=== PATIENT | female | born 1990 | race Caucasian/White ===

== ENCOUNTER 2016-08-31 21:45 | Emergency (ER) | payer MEDICAID ==
[2016-08-31 21:56] VITALS: BP 113/65
--- NOTE | 2016-08-31 22:33 | EDM.PDOC ---
ED HPI GENERAL MEDICAL PROBLEM - General Chief Complaint: Skin Complaint Stated Complaint: POSS SPIDER BITE Time Seen by Provider: 08/31/16 22:14 Source of Information: Reports: Patient History Limitations: Reports: No Limitations - History of Present Illness INITIAL COMMENTS - FREE TEXT/NARRATIVE: This is a 25-year-old female. Apparently she got hit in the left lower leg proximally medial side by either a bug or a spider about 4 or 5 days ago. The area has a reddened region about 1.5 cm in diameter. She states it itches a lot and she was afraid it might be infected. He denies any fever or chills she denies any nausea or vomiting no nasal congestion no cough. She states she is approximately 5 months . 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: Hematologic History: Reports: Anemia - Past Surgical History Female Surgical History: Reports: D&C Social & Family History - Family History Family Medical History: Noncontributory - Tobacco Use Smoking Status *Q: Never Smoker Second Hand Smoke Exposure: No - Caffeine Use Caffeine Use: Reports: None - Recreational Drug Use Recreational Drug Use: No Drug Use in Last 12 Months: Yes Recreational Drug Type: Reports: Marijuana/Hashish ED ROS GENERAL - Review of Systems Review Of Systems: See Below Constitutional: Denies: Fever, Chills HEENT: Reports: No Symptoms Respiratory: Reports: No Symptoms Cardiovascular: Reports: No Symptoms Endocrine: Reports: No Symptoms GI/Abdominal: Reports: No Symptoms : Reports: No Symptoms Musculoskeletal: Reports: No Symptoms Skin: Reports: Other (As per history of present illness) Neurological: Reports: No Symptoms Psychiatric: Reports: No Symptoms Hematologic/Lymphatic: Reports: No Symptoms ED EXAM, SKIN/RASH Exam: See Below Exam Limited By: No Limitations General Appearance: Alert, WD/WN, No Apparent Distress Eye Exam: Bilateral Eye: Normal Inspection Ears: Normal External Exam Nose: Normal Inspection Throat/Mouth: Normal Inspection, Normal Lips, Normal Voice Head: Normocephalic Neck: Supple Respiratory/Chest: No Respiratory Distress GI/Abdominal: Soft Back Exam: Full Range of Motion Extremities: Other (In her left lower extremity in the lower leg proximal portion medially there does appear to be an insect bite, there is some erythema about 1.5 cm diameter around the insect bite, there is no ulceration there is no induration, there is no warmth differential and no suggestion of a cellulitis it is just a reaction to the insect bite, there is no other skin complaints) Neurological: Alert, Oriented Psychiatric: Normal Affect, Normal Mood Skin: Warm, Dry Course - Vital Signs Last Recorded V/S: Last Vital Signs Temp 98.5 F 08/31/16 21:52 Pulse 85 08/31/16 21:52 Resp 20 08/31/16 21:52 BP 113/65 08/31/16 21:52 Pulse Ox 99 08/31/16 21:52 - Re-Assessments/Exams Free Text/Narrative Re-Assessment/Exam: 08/31/16 22:31 I spoke to the patient about not taking Benadryl pills since she is or using the hydrocortisone cream. It would be okay however to use the Caladryl type cream on the area or to use benzocaine cream. Departure - Departure Time of Disposition: 22:33 Disposition: Home, Self-Care 01 Condition: Good Clinical Impression: Pruritus Insect bite Qualifiers: Encounter type: initial encounter Qualified Code(s): W57.XXXA - Bitten or stung by nonvenomous insect and other nonvenomous arthropods, initial encounter - Discharge Information Referrals: Autumn Alaniz MD [Primary Care Provider] - Forms: ED Department Discharge Additional Instructions: For the insect bite to may use some Caladryl cream or lotion and/or some benzocaine cream to help with the itching, a few scratch the area a lot it will tend to make the reaction bigger and last longer should try not to scratch it, follow-up with the ER as needed
== END 2016-08-31 22:44 | disposition home or self-care (01) ==
LOC: JD.ED 21:45
DX: O9A.212 Injury, poisoning and certain other consequences of external causes complicating pregnancy, second trimester (principal); S80.862A Insect bite (nonvenomous), left lower leg, initial encounter; L29.9 Pruritus, unspecified; Z87.440 Personal history of urinary (tract) infections; Z86.2 Personal history of diseases of the blood and blood-forming organs and certain disorders involving the immune mechanism; W57.XXXA Bitten or stung by nonvenomous insect and other nonvenomous arthropods, initial encounter
CPT/HCPCS: 99282

== ENCOUNTER 2016-12-26 23:38 | Inpatient (IN) | payer MEDICAID ==
[2016-12-26] MEDS ORDERED: Nalbuphine 20 MG/1 ML Amp ONE (23:49)
[2016-12-27] MEDS ORDERED: Oxytocin/Lactated Ringers 10 UNIT/1,000 ML BAG IV SCH
[2016-12-27] MEDS ORDERED: Sodium Chloride 0.9% 10 ML Syringe FLUSH PRN
[2016-12-27] MEDS ORDERED: Ondansetron 4 MG/2 ML SDV IVPUSH PRN
[2016-12-27] MEDS ORDERED: Nalbuphine 20 MG/1 ML Amp IVPUSH PRN
[2016-12-27] MEDS ORDERED: Lidocaine 1% 50 ML MDV ONE (00:28)
[2016-12-27] MEDS ORDERED: diphenhydrAMINE 50 MG/ML SDV IVPUSH PRN (00:29)
[2016-12-27] MEDS ORDERED: fentaNYL 100 MCG/2 ML SDV EPIDUR PRN (00:29)
[2016-12-27] MEDS ORDERED: ePHEDrine 50 MG/ML SDV IVPUSH PRN (00:29)
[2016-12-27] MEDS ORDERED: Bupivacaine/fentaNYL/NS 100 ML Bag EPIDUR SCH (00:30)
[2016-12-27] MEDS: Lactated Ringers 1,000 ML IV SCH ×2 (00:32→00:33)
--- NOTE | 2016-12-27 00:47 | PCM.LDHP ---
L&D History of Present Illness - General Date of Service: 12/27/16 Admit Problem/Dx: Patient Status Order with Admit Dx/Problem 12/27/16 00:01 Patient Status [ADT] Routine Admission Diagnosis/Problem Admission Diagnosis/Problem Source of Information: Patient History Limitations: Reports: No Limitations - History of Present Illness Introduction:: 26 year old at 40w0d here in labor. PNC with myself complicated by closely spaced pregnancies. Doing well. Very uncomfortable with contractions. 5 cm. Has been 5 in clinic but without contractions. 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: Hematologic History: Reports: Anemia - Past Surgical History Female Surgical History: Reports: D&C Social & Family History - Family History Family Medical History: Noncontributory - Tobacco Use Smoking Status *Q: Never Smoker Second Hand Smoke Exposure: No - Caffeine Use Caffeine Use: Reports: None - Recreational Drug Use Recreational Drug Use: No Drug Use in Last 12 Months: Yes Recreational Drug Type: Reports: Marijuana/Hashish H&P Review of Systems - Review of Systems: Review Of Systems: See Below General: Reports: No Symptoms HEENT: Reports: No Symptoms Pulmonary: Reports: No Symptoms Cardiovascular: Reports: No Symptoms Gastrointestinal: Reports: No Symptoms Genitourinary: Reports: No Symptoms Musculoskeletal: Reports: No Symptoms Skin: Reports: No Symptoms Psychiatric: Reports: No Symptoms Neurological: Reports: No Symptoms Hematologic/Lymphatic: Reports: No Symptoms Immunologic: Reports: No Symptoms L&D Exam - Exam Exam: See Below - OB Specific Contraction Intensity: Moderate to Strong Movement: Active Heart Tones: Present Heart Rate (FHR) Variability: Moderate (6-25 bmp) Presentation: Vertex - Weaver Score Weaver Score Cervix Position: Midposition Weaver Score Consistency: Soft Weavre Score Effacement: >80% Weaver Score Dilation: > 5 cm Weaver Score Infant's Station: -2 Weaver Score Total: 10 - Exam General: Alert, Oriented HEENT: PERRLA, Conjunctiva Clear, EACs Clear, EOMI, Hearing Intact, Mucosa Moist & [place], Nares Patent, Normal Nasal Septum, Posterior Pharynx Clear, TMs Clear Neck: Supple, Trachea Midline Lungs: Clear to Auscultation, Normal Respiratory Effort Cardiovascular: Regular Rate, Regular Rhythm GI/Abdominal Exam: Normal Bowel Sounds, Soft, Non-Tender, No Organomegaly, No Distention, No Abnormal Bruit, No Mass, Pelvis Stable Genitourinary: Normal external exam, Normal bimanual exam, Normal speculum exam Back Exam: Normal Inspection, Full Range of Motion Extremities: Normal Inspection, Normal Range of Motion, Non-Tender, No Pedal Edema, Normal Capillary Refill Skin: Warm, Dry, Intact Neurological: Cranial Nerves Intact, Reflexes Equal Bilateral Psychiatric: Alert, Normal Affect, Normal Mood - Patient Data Lab Results Last 24 hrs: Laboratory Results - last 24 hr 12/26/16 Range/Units 23:53 WBC 10.17 H (3.98-10.04) K/mm3 RBC 4.57 (3.98-5.22) M/mm3 Hgb 8.3 L (11.2-15.7) gm/L Hct 29.3 L (34.1-44.9) % MCV 64.1 L (79.4-94.8) fl MCH 18.2 L (25.6-32.2) pg MCHC 28.3 L (32.2-35.5) g/dl RDW Std Deviation 43.3 (36.4-46.3) fL Plt Count 220 (182-369) K/mm3 MPV 10.3 (9.4-12.3) fl Neut % (Auto) 63.5 (34.0-71.1) % Lymph % (Auto) 27.3 (19.3-51.7) % [place] % (Auto) 8.7 (4.7-12.5) % Eos % (Auto) 0.3 L (0.7-5.8) Baso % (Auto) 0.1 (0.1-1.2) % Neut # (Auto) 6.46 H (1.56-6.13) K/mm3 Lymph # (Auto) 2.78 (1.18-3.74) K/mm3 [place] # (Auto) 0.88 H (0.24-0.36) K/mm3 Eos # (Auto) 0.03 L (0.04-0.36) K/mm3 Baso # (Auto) 0.01 (0.01-0.08) K/mm3 Manual Slide Review Abnormal smear Result Diagrams: 12/26/16 23:53 Problem List Initiated/Reviewed/Updated: Yes Orders Last 24hrs: Active Orders 24 hr Category Date Time Status Patient Status [ADT] Routine ADT 12/27/16 00:01 Active Activity as Tolerated [RC] PFP Care 12/27/16 00:00 Active Communication Order [RC] ASDIRECTED Care 12/27/16 00:00 Active Communication Order [RC] ASDIRECTED Care 12/27/16 00:29 Active Cooling Warming Measures [RC] ASDIRECTED Care 12/27/16 00:29 Active Heart Tones [RC] ASDIRECTED Care 12/27/16 00:01 Active Notify Provider [RC] ASDIRECTED Care 12/27/16 00:29 Active Notify Provider [RC] PFP Care 12/27/16 00:00 Active Notify Provider [RC] PRN Care 12/27/16 00:00 Active Oxygen Therapy [RC] ASDIRECTED Care 12/27/16 00:29 Active Peripheral IV Care [RC] . DIRECTED Care 12/27/16 00:01 Active Pulse Oximetry [RC] ASDIRECTED Care 12/27/16 00:29 Active Urinary Catheter Assessment [RC] ASDIRECTED Care 12/27/16 00:00 Active Verify Patient Consent Obtain [RC] ASDIRECTED Care 12/27/16 00:29 Active Vital Signs [RC] PER UNIT ROUTINE Care 12/27/16 00:00 Active Vital Signs [RC] Q1H Care 12/27/16 00:29 Active Bupivacaine/fentaNYL/NS [fentaNYL/Bupivacaine/NS 2 MCG- Med 12/27/16 00:30 Active 0.125% 100 ML] 100 ml EPIDUR ASDIRECTED Lactated Ringers [Ringers, Lactated] 1,000 ml Med 12/27/16 00:00 Active IV ASDIRECTED Nalbuphine [Nubain] Med 12/27/16 00:00 Active 10 mg IVPUSH Q2H PRN Ondansetron [Zofran] Med 12/27/16 00:00 Active 4 mg IVPUSH Q4H PRN Oxytocin/Lactated Ringers [Pitocin in LR 10 Units/1,000 Med 12/27/16 00:00 Active ML] 10 unit in 1,000 ml IV .CONTINUOUS Sodium Chloride 0.9% [Saline Flush] Med 12/27/16 00:00 Active 10 ml FLUSH ASDIRECTED PRN diphenhydrAMINE [Benadryl] Med 12/27/16 00:29 Active 25 mg IVPUSH Q6H PRN ePHEDrine [ePHEDrine Sulfate] Med 12/27/16 00:29 Active 5 mg IVPUSH ASDIRECTED PRN fentaNYL [Sublimaze] Med 12/27/16 00:29 Active 100 mcg EPIDUR Q3H PRN Electronic Heart Tones Ext w TOCO [WOMSER] Oth 12/27/16 00:00 Ordered Routine Electronic Heart Tones Internal [WOMSER] Per Unit Oth 12/27/16 00:00 Ordered Routine Peripheral IV Insertion Adult [OM.PC] Routine Oth 12/27/16 00:00 Ordered Resuscitation Status Routine Resus Stat 12/27/16 00:00 Ordered Medication Orders Diphenhydramine HCl (Benadryl) 25 mg IVPUSH Q6H PRN PRN Reason: Itching Ephedrine Sulfate (Ephedrine Sulfate) 5 mg IVPUSH ASDIRECTED PRN PRN Reason: HYPOTENSION Fentanyl (Sublimaze) 100 mcg EPIDUR Q3H PRN PRN Reason: PAIN Fentanyl/Bupivacaine HCl (Fentanyl/Bupivacaine/Ns 2 Mcg-0.125% 100 Ml) 100 ml EPIDUR ASDIRECTED MELISSA Lactated Ringer's (Ringers, Lactated) 1,000 mls @ 100 mls/hr IV ASDIRECTED MELISSA Last Admin: 12/27/16 00:33 Dose: 999 mls/hr Infusion: 12/27/16 00:33 Dose: 999 mls/hr Admin: 12/27/16 00:32 Dose: 999 mls/hr Oxytocin/Lactated Ringer's (Pitocin In Lr 10 Units/1,000 Ml) 10 unit in 1,000 mls @ 500 mls/hr IV .CONTINUOUS MELISSA Last Admin: 12/27/16 00:34 Dose: 500 mls/hr Nalbuphine HCl (Nubain) 10 mg IVPUSH Q2H PRN PRN Reason: Pain (moderate 4-6) Ondansetron HCl (Zofran) 4 mg IVPUSH Q4H PRN PRN Reason: Nausea/Vomiting Sodium Chloride (Saline Flush) 10 ml FLUSH ASDIRECTED PRN PRN Reason: Keep Vein Open Assessment/Plan Comment:: 40w IUP. Desires epidural. Reassuring monitoring. Anticipate . IV fluids now.
--- NOTE | 2016-12-27 00:50 | PCM.PREANE ---
Preanesthetic Assessment - Anesthesia/Transfusion/Family Hx Anesthesia History: Prior Anesthesia Without Reaction Family History of Anesthesia Reaction: No Transfusion History: No Prior Transfusion(s) - Review of Systems General: No Symptoms Pulmonary: No Symptoms Cardiovascular: No Symptoms Gastrointestinal: No Symptoms Neurological: No Symptoms Other: Reports: None - Physical Assessment ASA Class: 2 Mental Status: Alert & Oriented x3 Airway Class: Mallampati = 1 Dentition: Reports: Normal Dentition Thyro-Mental Finger Breadths: 3 Mouth Opening Finger Breadths: 3 ROM/Head Extension: Full Lungs: Clear to Auscultation, Normal Respiratory Effort Cardiovascular: Regular Rate, Regular Rhythm, No Murmurs - Lab Values: Laboratory Last Values WBC 10.17 K/mm3 (3.98-10.04) H 12/26/16 23:53 RBC 4.57 M/mm3 (3.98-5.22) 12/26/16 23:53 Hgb 8.3 gm/L (11.2-15.7) L 12/26/16 23:53 Hct 29.3 % (34.1-44.9) L 12/26/16 23:53 MCV 64.1 fl (79.4-94.8) L 12/26/16 23:53 MCH 18.2 pg (25.6-32.2) L 12/26/16 23:53 MCHC 28.3 g/dl (32.2-35.5) L 12/26/16 23:53 RDW Std Deviation 43.3 fL (36.4-46.3) 12/26/16 23:53 Plt Count 220 K/mm3 (182-369) 12/26/16 23:53 MPV 10.3 fl (9.4-12.3) 12/26/16 23:53 Neut % (Auto) 63.5 % (34.0-71.1) 12/26/16 23:53 Lymph % (Auto) 27.3 % (19.3-51.7) 12/26/16 23:53 [place] % (Auto) 8.7 % (4.7-12.5) 12/26/16 23:53 Eos % (Auto) 0.3 (0.7-5.8) L 12/26/16 23:53 Baso % (Auto) 0.1 % (0.1-1.2) 12/26/16 23:53 Neut # (Auto) 6.46 K/mm3 (1.56-6.13) H 12/26/16 23:53 Lymph # (Auto) 2.78 K/mm3 (1.18-3.74) 12/26/16 23:53 [place] # (Auto) 0.88 K/mm3 (0.24-0.36) H 12/26/16 23:53 Eos # (Auto) 0.03 K/mm3 (0.04-0.36) L 12/26/16 23:53 Baso # (Auto) 0.01 K/mm3 (0.01-0.08) 12/26/16 23:53 Manual Slide Review Abnormal smear 12/26/16 23:53 - Allergies Allergies/Adverse Reactions: Allergies Allergy/AdvReac Type Severity Reaction Status Date / Time No Known Allergies Allergy Verified 08/31/16 21:56 - Anesthesia Plan Pre-Op Medication Ordered: None - Acknowledgements Anesthesia Type Planned: Spinal Pt an Appropriate Candidate for the Planned Anesthesia: Yes Alternatives and Risks of Anesthesia Discussed w Pt/Guardian: Yes Pt/Guardian Understands and Agrees with Anesthesia Plan: Yes PreAnesthesia Questionnaire - Past Health History Medical/Surgical History: Denies Medical/Surgical History Gastrointestinal History: Reports: GERD Genitourinary History: Reports: UTI, Recurrent Other Genitourinary History: Hx of multiple kidney infections, kidney cysts 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: Hematologic History: Reports: Anemia - Past Surgical History Female Surgical History: Reports: D&C - SUBSTANCE USE Smoking Status *Q: Never Smoker Second Hand Smoke Exposure: No Recreational Drug Use History: No Recreational Drug Type: Reports: Marijuana/Hashish Other Recreational Drug Type: medical for pain back pain and kidney stones - HOME MEDS Home Medications: Home Meds Nitrofurantoin Monohyd/M-Cryst [Macrobid 100 mg Capsule] 100 mg PO Q12H #20 capsule 12/22/16 [Rx] - CURRENT (IN HOUSE) MEDS Current Meds: Current Medications Diphenhydramine HCl (Benadryl) 25 mg IVPUSH Q6H PRN PRN Reason: Itching Ephedrine Sulfate (Ephedrine Sulfate) 5 mg IVPUSH ASDIRECTED PRN PRN Reason: HYPOTENSION Fentanyl (Sublimaze) 100 mcg EPIDUR Q3H PRN PRN Reason: PAIN Fentanyl/Bupivacaine HCl (Fentanyl/Bupivacaine/Ns 2 Mcg-0.125% 100 Ml) 100 ml EPIDUR ASDIRECTED MELISSA Lactated Ringer's (Ringers, Lactated) 1,000 mls @ 100 mls/hr IV ASDIRECTED MELISSA Last Admin: 12/27/16 00:33 Dose: 999 mls/hr Oxytocin/Lactated Ringer's (Pitocin In Lr 10 Units/1,000 Ml) 10 unit in 1,000 mls @ 500 mls/hr IV .CONTINUOUS MELISSA Last Admin: 12/27/16 00:34 Dose: 500 mls/hr Nalbuphine HCl (Nubain) 10 mg IVPUSH Q2H PRN PRN Reason: Pain (moderate 4-6) Ondansetron HCl (Zofran) 4 mg IVPUSH Q4H PRN PRN Reason: Nausea/Vomiting Sodium Chloride (Saline Flush) 10 ml FLUSH ASDIRECTED PRN PRN Reason: Keep Vein Open Discontinued Medications Lidocaine HCl (Xylocaine 1%) Confirm Administered Dose 50 ml .ROUTE .STK-MED ONE Stop: 12/27/16 00:29 Nalbuphine HCl (Nubain) Confirm Administered Dose 20 mg .ROUTE .STK-MED ONE Stop: 12/26/16 23:50
[2016-12-27] MEDS ORDERED: Witch Hazel Medicated Pads 100/Jar TOP PRN (02:49)
[2016-12-27] MEDS ORDERED: Docusate Sodium 100 MG Cap PO PRN (02:49)
[2016-12-27] MEDS ORDERED: Benzocaine/Menthol 20%-0.5% Spray 56 GM Canister TOP PRN (02:49)
[2016-12-27] MEDS ORDERED: Lanolin 100% Cream 7 GM Tube TOP PRN (02:49)
[2016-12-27] MEDS ORDERED: Simethicone 80 MG Tab.Chew PO PRN (02:49)
[2016-12-27] MEDS: Ibuprofen 600 MG Tab PO PRN ×3 (03:00→22:38)
--- NOTE | 2016-12-27 09:53 | PCM48HPAN ---
Post Anesthesia Note - EVALUATION WITHIN 48HRS OF ANESTHETIC Vital Signs in Normal Range: Yes Patient Participated in Evaluation: Yes Respiratory Function Stable: Yes Airway Patent: Yes Cardiovascular Function Stable: Yes Hydration Status Stable: Yes Pain Control Satisfactory: Yes Nausea and Vomiting Control Satisfactory: Yes Mental Status Recovered: Yes
[2016-12-27] MEDS ORDERED: Bupivacaine 0.25% 10 ML SDV ONE (22:22)
--- NOTE | 2016-12-28 07:57 | PCM.DCSUM1 ---
Discharge Summary - Hospital Course Brief History: Admitted in labor. Rapid . Anemia on admission that worsened slightly. Asymptomatic - Discharge Data Discharge Date: 12/28/16 Discharge Disposition: Home, Self-Care 01 Condition: Good - Patient Instructions Diet: Usual Diet as Tolerated Activity: No Strenuous Activities Activity, Other: pelvic rest Driving: May Drive Today Showering/Bathing: May Shower Notify Provider of: Fever, Increased Pain, Swelling and Redness, Drainage, Nausea and/or Vomiting - Discharge Plan Prescriptions/Med Rec: Ferrous Sulfate [Slow Fe] 142 mg PO BID #60 tablet.er Home Medications: Home Meds Vit W-Ca,Fe,FA(<1 mg) [ Vitamins] 1 each PO DAILY 12/27/16 [ History] Ferrous Sulfate [Slow Fe] 142 mg PO BID #60 tablet.er 12/28/16 [Rx] Patient Handouts: Vaginal Delivery, Care After, Home Care Instructions for Mom , Pelvic Rest Referrals: Autumn Alaniz MD [Primary Care Provider] - (4 weeks) - Discharge Summary/Plan Comment DC Time >30 min.: No - General Info Date of Service: 12/28/16 Functional Status: Reports: Pain Controlled - Review of Systems General: Reports: No Symptoms. Denies: Weakness, Fatigue HEENT: Reports: No Symptoms Pulmonary: Reports: No Symptoms Cardiovascular: Reports: No Symptoms Gastrointestinal: Reports: No Symptoms Genitourinary: Reports: No Symptoms Musculoskeletal: Reports: No Symptoms Skin: Reports: No Symptoms Neurological: Reports: No Symptoms Psychiatric: Reports: No Symptoms - Patient Data Vitals - Most Recent: Last Vital Signs Temp 36.6 C 12/28/16 03:32 Pulse 61 12/28/16 03:32 Resp 16 12/28/16 03:32 BP 101/55 L 12/28/16 03:32 Pulse Ox 100 12/28/16 03:32 Weight - Most Recent: 63.503 kg I&O - Last 24 hours: Intake & Output 12/27/16 12/28/16 12/28/16 22:59 06:59 14:59 Intake Total 120 500 Balance 120 500 Lab Results - Last 24 hrs: Laboratory Results - last 24 hr 12/27/16 12/27/16 Range/Units 22:43 22:43 WBC 10.26 H (3.98-10.04) K/mm3 RBC 3.98 (3.98-5.22) M/mm3 Hgb 7.3 L* (11.2-15.7) gm/L Hct 26.2 L (34.1-44.9) % MCV 65.8 L (79.4-94.8) fl MCH 18.3 L (25.6-32.2) pg MCHC 27.9 L (32.2-35.5) g/dl RDW Std Deviation 44.1 (36.4-46.3) fL Plt Count 207 (182-369) K/mm3 MPV 11.4 (9.4-12.3) fl Blood Type B POSITIVE Gel Antibody Screen Negative Med Orders - Current: Current Medications Benzocaine/Menthol (Dermoplast Pain Relief [place]) 0 gm TOP ASDIRECTED PRN PRN Reason: Perineal Comfort Measure Last Admin: 12/27/16 03:52 Dose: 1 spray Docusate Sodium (Colace) 100 mg PO BID PRN PRN Reason: Constipation Emollient Ointment (Lansinoh Hpa) 0 gm TOP ASDIRECTED PRN PRN Reason: Sore Nipples Ibuprofen (Motrin) 600 mg PO Q6H PRN PRN Reason: Mild pain or fever Last Admin: 12/27/16 22:38 Dose: 600 mg Simethicone (Simethicone) 80 mg PO Q4H PRN PRN Reason: Gas Witch Kayleen (Tucks) 1 pad TOP ASDIRECTED PRN PRN Reason: Hemorrhoid pain Last Admin: 12/27/16 03:52 Dose: 1 pad Discontinued Medications Diphenhydramine HCl (Benadryl) 25 mg IVPUSH Q6H PRN PRN Reason: Itching Ephedrine Sulfate (Ephedrine Sulfate) 5 mg IVPUSH ASDIRECTED PRN PRN Reason: HYPOTENSION Fentanyl (Sublimaze) 100 mcg EPIDUR Q3H PRN PRN Reason: PAIN Fentanyl/Bupivacaine HCl (Fentanyl/Bupivacaine/Ns 2 Mcg-0.125% 100 Ml) 100 ml EPIDUR ASDIRECTED MELISSA Lactated Ringer's (Ringers, Lactated) 1,000 mls @ 100 mls/hr IV ASDIRECTED MELISSA Last Admin: 12/27/16 00:33 Dose: 999 mls/hr Oxytocin/Lactated Ringer's (Pitocin In Lr 10 Units/1,000 Ml) 10 unit in 1,000 mls @ 500 mls/hr IV .CONTINUOUS MELISSA Last Admin: 12/27/16 00:34 Dose: 500 mls/hr Lidocaine HCl (Xylocaine 1%) Confirm Administered Dose 50 ml .ROUTE .STK-MED ONE Stop: 12/27/16 00:29 Last Admin: 12/27/16 04:19 Dose: Not Given Nalbuphine HCl (Nubain) Confirm Administered Dose 20 mg .ROUTE .STK-MED ONE Stop: 12/26/16 23:50 Last Admin: 12/27/16 04:20 Dose: Not Given Nalbuphine HCl (Nubain) 10 mg IVPUSH Q2H PRN PRN Reason: Pain (moderate 4-6) Last Admin: 12/27/16 00:00 Dose: 10 mg Ondansetron HCl (Zofran) 4 mg IVPUSH Q4H PRN PRN Reason: Nausea/Vomiting Sodium Chloride (Saline Flush) 10 ml FLUSH ASDIRECTED PRN PRN Reason: Keep Vein Open - Exam General: Reports: Alert, Oriented HEENT: Reports: Pupils Equal, Pupils Reactive, EOMI, Mucous Membr. Moist/[place] Neck: Reports: Supple Lungs: Reports: Clear to Auscultation, Normal Respiratory Effort Cardiovascular: Reports: Regular Rate, Regular Rhythm. Denies: Tachycardia GI/Abdominal Exam: Normal Bowel Sounds, Soft, Non-Tender, No Organomegaly, No Distention, No Abnormal Bruit, No Mass, Pelvis Stable Back Exam: Reports: Normal Inspection, Full Range of Motion Extremities: Normal Inspection, Normal Range of Motion, Non-Tender, No Pedal Edema, Normal Capillary Refill Skin: Reports: Warm, Dry, Intact Wound/Incisions: Reports: Healing Well Neurological: Reports: No New Focal Deficit Psy/Mental Status: Reports: Alert, Normal Affect, Normal Mood *Q Meaningful Use (DIS) - VTE *Q VTE Criteria *Q: - Stroke *Q Stroke Criteria *Q: - AMI *Q AMI Criteria *Q:
[2016-12-28 11:45] VITALS: BP 111/65
[2016-12-28] MEDS: Ibuprofen 600 MG Tab PO PRN (11:56)
== END 2016-12-28 13:45 | disposition home or self-care (01) | DRG 775 ==
LOC: JD.OBCHECK 23:38 → JD.OB 23:42 → JD.OBCHECK 12-27 00:13 → JD.OB 12-27 00:15 → JD.MS 12-27 01:16 → OBSVTOIN 12-27 01:16 → JD.MS 12-27 03:05
PROVIDERS: ADMIT Obstetrics & Gynecology; ATTEND Obstetrics & Gynecology
PROC: 10E0XZZ Delivery of Products of Conception, External Approach (ICD-10-PCS; principal; 2016-12-27)
PROC: 10907ZC Drainage of Amniotic Fluid, Therapeutic from Products of Conception, Via Natural or Artificial Opening (ICD-10-PCS; 2016-12-27)
PROC: 00HU33Z Insertion of Infusion Device into Spinal Canal, Percutaneous Approach (ICD-10-PCS; 2016-12-27)
PROC: 3E0R3BZ Introduction of Anesthetic Agent into Spinal Canal, Percutaneous Approach (ICD-10-PCS; 2016-12-27)
DX: O99.02 Anemia complicating childbirth (principal); Z3A.40 40 weeks gestation of pregnancy; Z37.0 Single live birth
CPT/HCPCS: 01967; 36415; 59409; 85025; 85027; 86850; 86900; 86901; A9270-GY; J2300; J2590; J7120

== ENCOUNTER 2017-12-04 12:06 | Emergency (ER) | payer MEDICAID ==
[2017-12-04] MEDS ORDERED: Ondansetron 4 MG Tab.DIS PO ONE (12:40)
[2017-12-04] MEDS ORDERED: Acetaminophen 325 MG Tab PO STA (12:40)
--- NOTE | 2017-12-04 13:41 | EDM.PDOC ---
ED HPI GENERAL MEDICAL PROBLEM - General Chief Complaint: Head Injury Stated Complaint: HEAD INJURY Time Seen by Provider: 12/04/17 12:28 Source of Information: Reports: Patient History Limitations: Reports: No Limitations - History of Present Illness INITIAL COMMENTS - FREE TEXT/NARRATIVE: 27-year-old female presents for evaluation and treatment of head trauma. Patient reports off and she was drinking alcohol. States that she drank excessively. She does not recall what happened. She believes she was at a gas station. She is reporting a headache primarily to the posterior parietal and superior occipital area. She reports nausea and vomiting. She states that she remembers being at gas station where she believes she fell. She then reports waking up at home. She is not taking anything for her headache, nausea or vomiting. She reports and neck pain to the left side of her neck as well. Denies any chest pain, abdominal pain, back pain, pain in the extremities or hips. She was walking on her own volition. No bruising. She has not appreciated any lumps to her scalp. 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 Denies: Abdominal Pain Musculoskeletal: Reports: Neck Pain Neurological: Reports: Headache ED EXAM, HEAD INJURY - Physical Exam Exam: See Below Exam Limited By: No Limitations General Appearance: Alert, WD/WN, No Apparent Distress Head: Atraumatic, Normocephalic Nexus Criteria: No: Posterior, Midline Cervical Tenderness, Evidence of Intoxication, Altered Level of Consciousness, Focal Neurological Deficit, Painful Distraction Injuries Eyes: Bilateral Eye: EOMI, Normal Inspection Ears: Normal External Exam, Normal Canal, Hearing Grossly Normal, Normal TMs. No: TM Blood Nose: Normal Inspection, No Blood Throat/Mouth: Normal Inspection, Normal Lips, Normal Teeth, Normal Gums, Normal Oropharynx, Normal Voice, No Airway Compromise. No: Dental Trauma Neck: Non-Tender, Full Range of Motion, Normal Alignment, Normal Inspection, Tender Lateral (left lateral neck pain) Respiratory: No Respiratory Distress, Lungs Clear, Normal Breath Sounds, Chest Non-Tender Cardiovascular: Normal Peripheral Pulses, Regular Rate, Rhythm, No Murmur GI/Abdominal Exam: Normal Bowel Sounds, Soft, Non-Tender Neurologic: Alert, Normal Mood/Affect Skin: Normal Color, Warm/Dry - Eddie Coma Score Best Eye Response (Eddie): (4) Open Spontaneously Best Verbal Response (Eddie): (5) Oriented Best Motor Response (Eddie): (6) Obeys Commands Course - Vital Signs Last Recorded V/S: Last Vital Signs Temp 98.1 F 12/04/17 12:23 Pulse 78 12/04/17 14:34 Resp 16 12/04/17 14:34 BP 107/65 12/04/17 14:34 Pulse Ox 97 12/04/17 14:34 - Orders/Labs/Meds Meds: Medications Discontinued Medications Generic Name Dose Route Start Last Admin Trade Name Anamaria PRN Reason Stop Dose Admin Acetaminophen 650 mg 12/04/17 12:40 12/04/17 13:05 Tylenol PO 12/04/17 12:41 650 mg NOW STA Administration Ketorolac Tromethamine 60 mg 12/04/17 14:21 12/04/17 14:34 Toradol IM 12/04/17 14:22 60 mg ONETIME ONE Administration Ondansetron HCl 4 mg 12/04/17 12:40 12/04/17 13:06 Zofran Odt PO 12/04/17 12:41 4 mg ONETIME ONE Administration - Radiology Interpretation Free Text/Narrative:: Head CT Technique: Multiple axial sections through the brain were obtained. Intravenous contrast was not utilized. Comparison: No previous intracranial imaging. Findings: Ventricles along with basal cisterns and sulci over the convexities are within normal limits for the patient's age. No abnormal parenchymal densities are seen. No evidence of intracranial hemorrhage. No midline shift or mass effect is seen. Bone window settings were reviewed which show no acute calvarial abnormality. Mild mucosal thickening is noted within the ethmoid sinus and sphenoid sinus. Impression: 1. Probable mild chronic sinusitis. 2. No acute intracranial abnormality is seen. CT cervical spine Technique: Multiple axial sections were obtained from above C1 inferiorly to the top of T3. Reconstructed sagittal and coronal images were reviewed. Findings: Vertebral bodies and disc spaces are maintained. Vertebral bodies and posterior arches are intact with no fracture being seen. No bony central or bony neural foraminal stenosis is seen. Kyphosis is noted on the reconstructed sagittal views which likely is positional. No abnormal subluxation is seen. Impression: 1. Nothing acute is seen on CT study of the cervical spine. - Re-Assessments/Exams Free Text/Narrative Re-Assessment/Exam: 12/04/17 14:21 I reviewed the imaging with the patient. She is asking for something more for her headache. I will give her some IM Toradol now that her head CT is clear. We' ll plan to discharge home. Discharge instructions as documented. Departure - Departure Time of Disposition: 14:21 Disposition: Home, Self-Care 01 Condition: Fair Clinical Impression: Headache, Nausea & vomiting, Alcohol abuse - Discharge Information *PRESCRIPTION DRUG MONITORING PROGRAM REVIEWED*: No *COPY OF PRESCRIPTION DRUG MONITORING REPORT IN PATIENT LAURENT: No Instructions: Alcohol Use Disorder, General Headache Without Cause Referrals: PCP,None [Primary Care Provider] - Forms: ED Department Discharge Additional Instructions: go home and rest. Make sure you are drinking plenty of fluids. zofran 1 tab sublingual every 6-8 hours as needed for nausea. Recommend bland foods and clear liquids today. [id number] Tylenol or Motrin as needed for headaches. Please return to the ER if your symptoms change or worsen.
--- NOTE | 2017-12-04 14:05 | CT ---
Head CT Technique: Multiple axial sections through the brain were obtained. Intravenous contrast was not utilized. Comparison: No previous intracranial imaging. Findings: Ventricles along with basal cisterns and sulci over the convexities are within normal limits for the patient's age. No abnormal parenchymal densities are seen. No evidence of intracranial hemorrhage. No midline shift or mass effect is seen. Bone window settings were reviewed which show no acute calvarial abnormality. Mild mucosal thickening is noted within the ethmoid sinus and sphenoid sinus. Impression: 1. Probable mild chronic sinusitis. 2. No acute intracranial abnormality is seen. Diagnostic code #2
--- NOTE | 2017-12-04 14:09 | CT ---
CT cervical spine Technique: Multiple axial sections were obtained from above C1 inferiorly to the top of T3. Reconstructed sagittal and coronal images were reviewed. Findings: Vertebral bodies and disc spaces are maintained. Vertebral bodies and posterior arches are intact with no fracture being seen. No bony central or bony neural foraminal stenosis is seen. Kyphosis is noted on the reconstructed sagittal views which likely is positional. No abnormal subluxation is seen. Impression: 1. Nothing acute is seen on CT study of the cervical spine. Diagnostic code #1
[2017-12-04] MEDS ORDERED: Ketorolac 60 MG/2 ML SDV IM ONE (14:21)
[2017-12-04 14:35] VITALS: BP 107/65
== END 2017-12-04 14:53 | disposition home or self-care (01) ==
LOC: JD.ED 12:06
DX: R51 Headache (principal); R11.2 Nausea with vomiting, unspecified; F10.10 Alcohol abuse, uncomplicated
CPT/HCPCS: 70450; 72125; 96372; 99284; A9270; J1885

== ENCOUNTER 2019-10-31 14:56 | Emergency (ER) | payer MEDICAID ==
[2019-10-31] MEDS ORDERED: Ciprofloxacin 0.3% Ophth Soln 5 ML Bottle EYELF ONE (16:03)
[2019-10-31 16:10] VITALS: BP 119/81; PULSE 81
--- NOTE | 2019-10-31 16:10 | EDM.PDOC ---
ED HPI GENERAL MEDICAL PROBLEM - General Chief Complaint: Eye Problems Stated Complaint: EYE SWOLLEN Time Seen by Provider: 10/31/19 15:15 Source of Information: Reports: Patient History Limitations: Reports: No Limitations - History of Present Illness INITIAL COMMENTS - FREE TEXT/NARRATIVE: Patient is a 29-year-old female who presents to the emergency department with complaints of pain and itchiness to her left eye. Symptoms have been intermittent for last 3 weeks, however for last 3 days it got significantly worse. She does have an allergy to dog dander and has been exposed to a dog, however states allergy medications are not improving and it seems to be getting worse. She has no symptoms in her right eye. She denies any fever, chills, or discharge from the eye. - Related Data Allergies Allergy/AdvReac Type Severity Reaction Status Date / Time dog dander Allergy Itching Verified 10/31/19 15:12 Home Meds: Home Meds Nitrofurantoin Monohyd/M-Cryst [Macrobid 100 mg Capsule] 100 mg PO BEDTIME 10/31/19 [History] Past Medical History - Past Health History Medical/Surgical History: Denies Medical/Surgical History HEENT History: Reports: None Cardiovascular History: Reports: None Respiratory History: Reports: None Gastrointestinal History: Reports: GERD Genitourinary History: Reports: UTI, Recurrent Other Genitourinary History: Hx of multiple kidney infections, kidney cysts 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: Musculoskeletal History: Reports: None Neurological History: Reports: None Psychiatric History: Reports: None Endocrine/Metabolic History: Reports: None Hematologic History: Reports: Anemia Immunologic History: Reports: None Oncologic (Cancer) History: Reports: None Dermatologic History: Reports: None - Past Surgical History Female Surgical History: Reports: D&C, Tubal Ligation Social & Family History - Family History Family Medical History: Noncontributory - Tobacco Use Smoking Status *Q: Never Smoker - Caffeine Use Caffeine Use: Reports: Coffee - Recreational Drug Use Recreational Drug Use: No ED ROS GENERAL - Review of Systems Review Of Systems: Comprehensive ROS is negative, except as noted in HPI. ED EXAM GENERAL W FULL EYE - Physical Exam Exam: See Below Exam Limited By: No Limitations General Appearance: Alert, WD/WN, No Apparent Distress Eye Exam: Left Eye: Conjunctival Injection, Bilateral Eye: PERRL Respiratory/Chest: No Respiratory Distress, Lungs Clear, Normal Breath Sounds, No Accessory Muscle Use, Chest Non-Tender Cardiovascular: Normal Peripheral Pulses, Regular Rate, Rhythm, No Edema, No Gallop, No JVD, No Murmur, No Rub Neurological: Alert, Oriented, CN II-XII Intact, Normal Cognition, Normal Gait, Normal Reflexes, No Motor/Sensory Deficits Psychiatric: Normal Affect, Normal Mood Skin Exam: Warm, Dry, Intact, Normal Color, No Rash Course - Vital Signs Last Recorded V/S: Last Vital Signs Temp 97.6 F 10/31/19 16:10 Pulse 81 10/31/19 16:10 Resp 18 10/31/19 16:10 BP 119/81 10/31/19 16:10 Pulse Ox 99 10/31/19 16:10 - Orders/Labs/Meds Meds: Medications Discontinued Medications Generic Name Dose Route Start Last Admin Trade Name Jean-Claudeq PRN Reason Stop Dose Admin Ciprofloxacin 1 ml 10/31/19 16:15 Ciloxan 0.3% Ophth Soln EYELF Q4H MELISSA Ciprofloxacin 1 ml 10/31/19 16:03 10/31/19 16:08 Ciloxan 0.3% Ophth Soln EYELF 10/31/19 16:04 2 drop ONETIME ONE Administration - Re-Assessments/Exams Free Text/Narrative Re-Assessment/Exam: 10/31/19 16:05 On exam, left eye watery and conjunctive is injected. Discussed with patient that it is that this is likely an allergen, however symptoms are worsening despite antihistamine use. We will do a course of Cipro ophthalmic to treat for possible bacterial conjunctivitis. Discussed that if symptoms do not improve with this, she should follow-up in the clinic for further evaluation. Discharge instructions as documented Departure - Departure Time of Disposition: 16:06 Disposition: Home, Self-Care 01 Condition: Good Clinical Impression: Conjunctivitis Qualifiers: Conjunctivitis type: unspecified Laterality: left Qualified Code(s): H10.9 - Unspecified conjunctivitis - Discharge Information *PRESCRIPTION DRUG MONITORING PROGRAM REVIEWED*: No *COPY OF PRESCRIPTION DRUG MONITORING REPORT IN PATIENT LAURENT: No Instructions: Bacterial Conjunctivitis, Adult, [id number], How to Use Eye Drops and Eye Ointments Referrals: Lauren Brady MD [Primary Care Provider] - Forms: ED Department Discharge Additional Instructions: You were seen in the emergency department today for itching and watering of your left eye for the last 3 weeks with worsening symptoms of the last 3 days. As we discussed, it is likely that your redness is due to an allergen, however, since symptoms do not improve with allergy medications, we will treat with an antibiotic. You have been scribed ciprofloxacin ophthalmic drops. Instill 2 drops into your left eye every 6 hours for 5 days. Continue to use your allergy medications as needed. If symptoms do not improve after completing the treatment with ciprofloxacin eyedrops, you should follow-up in the clinic for further treatment for allergic conjunctivitis. Return to the ER as needed. Sepsis Event Note (ED) - Evaluation Sepsis Screening Result: No Definite Risk
[2019-10-31] MEDS ORDERED: Ciprofloxacin 0.3% Ophth Soln 5 ML Bottle EYELF SCH (16:15)
== END 2019-10-31 16:25 | disposition home or self-care (01) ==
LOC: JD.ED 14:56
DX: H10.9 Unspecified conjunctivitis (principal); Z91.09 Other allergy status, other than to drugs and biological substances
CPT/HCPCS: 99282; A9270

== ENCOUNTER 2019-12-04 17:11 | Emergency (ER) | payer MEDICAID ==
[2019-12-04 17:53] VITALS: BP 115/72; PULSE 90
--- NOTE | 2019-12-04 19:27 | EDM.PDOC ---
ED HPI GENERAL MEDICAL PROBLEM - General Chief Complaint: Chest Pain Stated Complaint: COUGH/L SIDE UPPER CHEST PAIN Time Seen by Provider: 12/04/19 19:00 Source of Information: Reports: Patient History Limitations: Reports: No Limitations - History of Present Illness INITIAL COMMENTS - FREE TEXT/NARRATIVE: This is a 29-year-old female. She noted about a week ago whenever she would breathe deeper cough she did have some sharp pain in the left breast area. She has checked her breast and her axilla and she has no lumps or bumps noted. The last mammogram she had was about 2009 and it was normal. She has since developed over the last 2 to 3 days a cough and runny nose. She did have a daughter who over a week ago was sick with cough congestion and vomiting. The patient states that she started vomiting this morning but no significant nausea. She is not been short of breath and she is not been running a fever. She says the only time she feels that sharp pain is essentially when she coughs or breathes deep. She denies any other acute symptoms. 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: Musculoskeletal History: Reports: None Neurological History: Reports: None Psychiatric History: Reports: None Endocrine/Metabolic History: Reports: None Hematologic History: Reports: Anemia Immunologic History: Reports: None Oncologic (Cancer) History: Reports: None Dermatologic History: Reports: None - Past Surgical History Female Surgical History: Reports: D&C, Tubal Ligation Social & Family History - Family History Family Medical History: Noncontributory - Caffeine Use Caffeine Use: Reports: Coffee ED ROS GENERAL - Review of Systems Review Of Systems: See Below Constitutional: Denies: Fever, Chills HEENT: Reports: Rhinitis, Sinus Problem. Denies: Throat Pain Respiratory: Reports: Cough. Denies: Shortness of Breath Cardiovascular: Reports: Chest Pain Endocrine: Reports: No Symptoms GI/Abdominal: Reports: No Symptoms, Vomiting. Denies: Diarrhea, Nausea : Reports: No Symptoms Musculoskeletal: Reports: No Symptoms Skin: Reports: No Symptoms Neurological: Reports: No Symptoms Psychiatric: Reports: No Symptoms Hematologic/Lymphatic: Reports: No Symptoms ED EXAM, GENERAL - Physical Exam Exam: See Below Exam Limited By: No Limitations General Appearance: Alert, WD/WN, No Apparent Distress Eye Exam: Bilateral Eye: Normal Inspection Ears: Normal External Exam Throat/Mouth: Normal Lips, Normal Voice, No Airway Compromise Head: Normocephalic Neck: Supple Respiratory/Chest: No Respiratory Distress, Lungs Clear, Normal Breath Sounds, Other (Patient of the left breast reveals no lumps or bumps and actually no tenderness the axilla has no lymphadenopathy, when I do palpate the pectoralis muscle in the axilla area it is tender on palpation. The ribs themselves are nontender on palpation she describes breathing and coughing causing sharp pain underneath her left breast) Cardiovascular: Regular Rate, Rhythm, No Murmur Back Exam: Normal Inspection, Full Range of Motion Extremities: Normal Inspection, Normal Range of Motion Neurological: Alert, Oriented Psychiatric: Normal Affect, Normal Mood Skin Exam: Warm, Dry Course - Vital Signs Last Recorded V/S: Last Vital Signs Temp 99.9 F 12/04/19 17:52 Pulse 90 12/04/19 17:52 Resp 20 12/04/19 17:52 BP 115/72 12/04/19 17:52 Pulse Ox 96 12/04/19 17:52 - Orders/Labs/Meds Labs: Laboratory Tests 12/04/19 Range/Units 19:50 SARS-CoV-2 RNA (CASIE) Negative (NEGATIVE) Meds: Medications Discontinued Medications Generic Name Dose Route Start Last Admin Trade Name Freq PRN Reason Stop Dose Admin Ibuprofen 400 mg 12/04/19 21:40 12/04/19 21:44 Motrin PO 12/04/19 21:41 400 mg ONETIME STA Administration - Re-Assessments/Exams Free Text/Narrative Re-Assessment/Exam: 12/04/19 21:52 I spoke to the patient regarding her x-ray results as well as her COVID test being negative. I believe she has a viral illness with some pleurisy. She is to follow-up with her family doctor later this week for recheck. Departure - Departure Time of Disposition: 21:53 Disposition: Home, Self-Care 01 Condition: Good Clinical Impression: Upper respiratory infection, viral, Pleurisy without effusion - Discharge Information *PRESCRIPTION DRUG MONITORING PROGRAM REVIEWED*: Not Applicable *COPY OF PRESCRIPTION DRUG MONITORING REPORT IN PATIENT LAURENT: Not Applicable Instructions: Viral Respiratory Infection, [id number] Referrals: Lauren Brady MD [Primary Care Provider] - Forms: ED Department Discharge Additional Instructions: Get some Aleve but that is [id number] take 2 tablets twice a day to help with the sharp pain and inflammation of the pleurisy, use a heating pad to the left chest area and find a comfortable position to ease up the sharp pain, continue to take deep breaths periodically to make sure the lungs expand, follow-up with your family doctor later this week for recheck Chest x-ray in the ER was completely normal COVID test in the ER was negative Sepsis Event Note (ED) - Evaluation Sepsis Screening Result: No Definite Risk - Focused Exam Vital Signs: Vital Signs Temp Pulse Resp BP Pulse Ox 12/04/19 17:52 99.9 F 90 20 115/72 96
--- NOTE | 2019-12-04 20:35 | CR ---
Chest: 2 views of the chest were obtained. Comparison: Prior chest x-ray of 10/07/17. Heart size and mediastinum are normal. Lungs show no definite acute parenchymal change. Bony structures appear within normal limits. Impression: 1. Nothing acute is appreciated. Diagnostic code #1 This report was dictated in MDT
[2019-12-04] MEDS ORDERED: Ibuprofen 400 MG Tab PO STA (21:40)
== END 2019-12-04 22:05 | disposition home or self-care (01) ==
LOC: JD.ED 17:11
DX: J06.9 Acute upper respiratory infection, unspecified (principal); R09.1 Pleurisy; Z91.048 Other nonmedicinal substance allergy status; Z20.828 Contact with and (suspected) exposure to other viral communicable diseases
CPT/HCPCS: 71046; 87635; 99284; A9270; 99283; U0002

== ENCOUNTER 2022-04-21 09:44 | Emergency (ER) | payer MEDICAID ==
[2022-04-21] MEDS ORDERED: Lidocaine/EPINEPHrine/Tetracaine Soln 1 ML TOP ONE (11:11)
[2022-04-21] MEDS ORDERED: Lidocaine 1% 10 ML MDV INJECT ONE (12:18)
[2022-04-21 13:20] VITALS: BP 120/88; PULSE 76
== END 2022-04-21 13:10 | disposition home or self-care (01) ==
LOC: JD.ED 09:44
DX: S30.851A Superficial foreign body of abdominal wall, initial encounter (principal); Z91.09 Other allergy status, other than to drugs and biological substances; W45.8XXA Other foreign body or object entering through skin, initial encounter
CPT/HCPCS: 99282; J3490